=== PATIENT | female | born 1955 | race Caucasian/White ===

== ENCOUNTER → 2016-12-01 | Outpatient (CLI) | payer MEDICAID | LOC: FIMAGING 12:09 | PROVIDERS: ATTEND Family Medicine | DX: Z12.31 Encounter for screening mammogram for malignant neoplasm of breast (principal) | CPT/HCPCS: G0202 ==

== ENCOUNTER 2016-12-16 19:16 | Emergency (ER) | payer OTHER, MEDICAID ==
[2016-12-16 19:23] VITALS: RESP 16
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
[2016-12-16 21:38] VITALS: BP 160/96; PULSE 62; TEMP 97.9; O2SAT 96
== END 2016-12-16 21:37 | disposition home or self-care (01) ==
DX: S16.1XXA Strain of muscle, fascia and tendon at neck level, initial encounter (principal); S09.90XA Unspecified injury of head, initial encounter; V49.49XA Driver injured in collision with other motor vehicles in traffic accident, initial encounter; Y92.410 Unspecified street and highway as the place of occurrence of the external cause; Y99.8 Other external cause status; Y93.89 Activity, other specified; I10 Essential (primary) hypertension

== ENCOUNTER → 2018-08-21 | Outpatient (CLI) | payer MEDICAID | LOC: FIMAGING 11:00 ==